=== PATIENT | male | born 1990 | race African-American/Black ===

== ENCOUNTER 2017-01-18 11:48 | Emergency (ER) | payer SELFPAY ==
[2017-01-18] MEDS ORDERED: OXYCODONE-ACETAMINOPHEN 5-325 MG TABLET PO ONE (12:24)
--- NOTE | 2017-01-18 13:11 | ER Document Report ---
HPI - HPI Patient complains to provider of: Abscess Onset: Last week Onset/Duration: Gradual Quality of pain: Achy Pain Level: 3 Context: Patient complains of abscess to left groin. Patient states he has had an abscess in the same location in the past. Patient states that he developed the abscess previously due to shaving. Patient denies any history of MRSA. Patient denies any fever. Associated Symptoms: Other - Abscess to left groin Exacerbated by: Movement Relieved by: Denies Similar symptoms previously: Yes Recently seen / treated by doctor: No - ROS ROS below otherwise negative: Yes Systems Reviewed and Negative: Yes All other systems reviewed and negative - CONSTITUTIONAL Constitutional: DENIES: Fever, Chills - CARDIOVASCULAR Cardiovascular: DENIES: Chest pain - GASTROINTESTINAL Gastrointestinal: DENIES: Nausea, Patient vomiting - MUSCULOSKELETAL Musculoskeletal: REPORTS: Extremity pain - DERM Skin Color: Normal Notes: Abscess Past Medical History - General Information source: Patient - Social History Smoking Status: Current Every Day Smoker Chew tobacco use (# tins/day): No Frequency of alcohol use: Occasional Drug Abuse: None Occupation: Car detailing Lives with: Spouse/Significant other Family History: Reviewed & Not Pertinent - Medical History Medical History: Negative Renal/ Medical History: Denies: Hx Peritoneal Dialysis Surgical Hx: Negative - Immunizations Hx Diphtheria, Pertussis, Tetanus Vaccination: Yes Vertical Provider Document - CONSTITUTIONAL Agree With Documented VS: Yes Exam Limitations: No Limitations General Appearance: WD/WN, No Apparent Distress - INFECTION CONTROL TRAVEL OUTSIDE OF THE [place] IN LAST 30 DAYS: No - HEENT HEENT: Atraumatic, Normocephalic - NECK Neck: Normal Inspection - RESPIRATORY Respiratory: Breath Sounds Normal, No Respiratory Distress O2 Sat by Pulse Oximetry: 96 - CARDIOVASCULAR Cardiovascular: Regular Rate, Regular Rhythm - GI/ABDOMEN Gastrointestinal: Abdomen Soft - REPRODUCTIVE Male Genitalia: Normal Inspection - MUSCULOSKELETAL/EXTREMETIES Musculoskeletal/Extremeties: MAEW - NEURO Level of Consciousness: Awake, Alert, Appropriate Motor/Sensory: No Motor Deficit - DERM Integumentary: Warm, Dry, Abscess - Abscess to left groin area 1 cm area of fluctuance with 2 cm area of induration, no erythema Course - Vital Signs Vital signs: Temp Pulse Resp BP Pulse Ox 98.4 F 73 18 118/63 96 01/18/17 11:54 01/18/17 11:54 01/18/17 11:54 01/18/17 11:54 01/18/17 11:54 Procedures - Incision and Drainage Left Groin Type: Simple Anesthetic type: 1% Lidocaine Blade size: 11 I&D procedure: Betadine prep applied Incision Method: Incision made by scalpel Amount/type of drainage: small amount purulent drainage Discharge - Discharge Clinical Impression: Abscess, Encounter for incision and drainage procedure Condition: Stable Disposition: HOME, SELF-CARE Instructions: Abscess ([facility]), Oral Narcotic Medication ([facility]), Post Incision and Drainage, Trimethoprim-Sulfa ([facility]) Additional Instructions: Return immediately for any new or worsening symptoms Followup with your primary care provider, call tomorrow to make a followup appointment Prescriptions: Oxycodone HCl/Acetaminophen [Percocet 5-325 mg Tablet] 1 tab PO ASDIR PRN #12 tablet PRN Reason: Sulfamethoxazole/Trimethoprim [Bactrim Ds Tablet] 1 each PO BID #20 tablet Forms: Return to Work Referrals: [facility] [Provider Group] - Follow up as needed
[2017-01-18 13:35] VITALS: BP 122/63
== END 2017-01-18 13:35 | disposition home or self-care (01) ==
LOC: ER 11:48
PROC: 0H9JXZZ Drainage of Left Upper Leg Skin, External Approach (ICD-10-PCS; principal; 2017-01-18)
DX: L02.214 Cutaneous abscess of groin (principal); F17.200 Nicotine dependence, unspecified, uncomplicated
CPT/HCPCS: 87070; 87075; 87077; 87205; 99283

== ENCOUNTER 2018-04-26 08:34 | Emergency (ER) | payer SELFPAY ==
--- NOTE | 2018-04-26 09:51 | ER Document Report ---
ED Skin Rash/Insect Bite/Abscs - General Chief Complaint: Abscess Stated Complaint: ABSCESS Time Seen by Provider: 04/26/18 08:54 Mode of Arrival: Ambulatory Information source: Patient Notes: Patient is a 27-year-old male who presents with chief complaint of possible abscess to his groin. Patient reports he has had this multiple times in the past. Patient denies any history of MRSA. Patient reports this time his abscess been has been present for approximately 3 days. He denies any drainage from the area, he further denies any fevers. TRAVEL OUTSIDE OF THE [place] IN LAST 30 DAYS: No - Related Data Allergies/Adverse Reactions: No Known Allergies Allergy (Verified 04/26/18 08:35) Past Medical History - General Information source: Patient - Social History Smoking Status: Current Every Day Smoker Chew tobacco use (# tins/day): No Frequency of alcohol use: None Drug Abuse: None Family History: Reviewed & Not Pertinent Patient has suicidal ideation: No Patient has homicidal ideation: No - Medical History Medical History: Negative Renal/ Medical History: Denies: Hx Peritoneal Dialysis Surgical Hx: Negative - Immunizations Hx Diphtheria, Pertussis, Tetanus Vaccination: Yes Review of Systems - Review of Systems Constitutional: denies: Chills, Fever Cardiovascular: denies: Chest pain, Palpitations Respiratory: denies: Cough Gastrointestinal: denies: Abdominal pain Genitourinary: denies: Dysuria Skin: See HPI Physical Exam - Vital signs Vitals: Temp Pulse Resp BP Pulse Ox 97.3 F 78 16 129/73 H 98 04/26/18 08:45 04/26/18 08:45 04/26/18 08:45 04/26/18 08:45 04/26/18 08:45 - Notes Notes: PHYSICAL EXAMINATION: GENERAL: Well-appearing, well-nourished and in no acute distress. HEAD: Atraumatic, normocephalic. EYES: Pupils equal round extraocular movements intact, conjunctiva are normal. ENT: Nares patent NECK: Normal range of motion LUNGS: No respiratory distress Musculoskeletal: Normal range of motion NEUROLOGICAL: Normal speech, normal gait. PSYCH: Normal mood, normal affect. SKIN: Warm, Dry, normal turgor, no rashes or lesions noted. Tender area of induration with small amount of fluctuance noted to patient's right groin. Course - Re-evaluation Re-evalutation: 04/26/18 10:14 Abscess was incised and drained, see procedure note. Patient tolerated well. Patient will be placed on p.o. antibiotics and discharged home in stable condition. - Vital Signs Vital signs: Temp Pulse Resp BP Pulse Ox 97.3 F 78 16 129/73 H 98 04/26/18 08:45 04/26/18 08:45 04/26/18 08:45 04/26/18 08:45 04/26/18 08:45 Procedures - Incision and Drainage Right groin Type: Simple Anesthetic type: 1% Lidocaine Blade size: 11 I&D procedure: Betadine prep applied Incision Method: Incision made by scalpel Discharge - Discharge Clinical Impression: Abscess Condition: Stable Disposition: HOME, SELF-CARE Additional Instructions: ABSCESS: You have an abscess (boil). This a pus-forming infection, usually due to staph. Some boils may be left to drain on their own, but most require lancing. From the time the tender lump first appears, it may be three or four days before the abscess is ready to sachin. Local heat and rest help at this stage of treatment. An antibiotic may prevent spread of the infection. Once the abscess is opened, packing may be placed into it. This is done so pus is not sealed inside by premature closure of the cavity. The packing will be removed at your follow-up visit or you may be advised to remove it yourself at home. Sometimes this packing must be replaced a few times during healing. The wound will heal with surprisingly little scar. Depending on the size and location of an abscess, healing can take one to four weeks. You may shower and wash the area around the incision site two or three times a day. Antibiotics may be prescribed, but are usually not necessary after an abscess has been drained. If you develop fever, chills, worsening pain, or increasing swelling in the area, call the doctor or return immediately. POST INCISION AND DRAINAGE: You have had an incision made to allow drainage of an abscess. The incision must remain open so that pus and debris can drain from the wound. If the abscess cavity is large, packing is placed. This keeps the tissues from collapsing and trapping pus inside, while the body shrinks the cavity. The packing may need to be replaced every day or two. The physician will instruct you on the packing. Keep a bulky dressing over the area. Replace it if it becomes saturated with blood or pus. Do not disturb the packing (if present). You may shower and cleanse the area with gentle soap and warm water two or three times a day. Local warmth may be soothing, and may promote faster healing. Return if you develop high fever or chills, or if you note spreading redness, increasing swelling, or increasing tenderness. CEPHALEXIN: The antibiotic you've been prescribed is a member of the cephalosporin class. This type of antibiotic covers a wide variety of infections, including those of the skin, lungs, and urinary tract. It's useful for staph infections. This antibiotic is slightly similar to the penicillin family. In rare cases, a person who is allergic to penicillin will also be allergic to this medication. If you have had a severe allergic reaction to penicillin, and have not taken this antibiotic since that time, notify your doctor. Antibiotics which cover many germs ("broad spectrum" antibiotics) are more likely to cause diarrhea or "yeast" infections. Women prone to vaginal yeast problems may suffer an attack after taking this antibiotic. In infants, oral thrush (white spots "stuck" on the cheek) or yeast diaper rash may result. See your doctor if these problems occur. Call at once if you develop itching, hives, shortness of breath, or lightheadedness. TRIMETHOPRIM-SULFA: You have been given a prescription for trimethoprim-sulfa (TMS, Septra, Bactrim). This is a combination antibiotic of the sulfa class, often used for urinary tract infections, middle ear infections, bronchitis, shigella intestinal infection, and Pneumocystis pneumonia. TMS is usually well-tolerated. Occasional side effects include nausea and decreased appetite. Septra is not recommended for infants less than two months of age. Do not take this medication if you have experienced severe side effects or allergy to sulfa medicine. You should stop this medicine at once and contact your physician if you develop any rash, joint pain, shortness of breath, bruising, or jaundice (yellow color in the skin), or if you develop any other new or unusual symptoms. FOLLOW-UP CARE: Most simple abscesses will not require a follow up visit. If you had packing placed in the abscess, remove it as instructed by the physician. If you have been referred to a physician for follow-up care, call the physicians office for an appointment as you were instructed or within the next two days. If you experience worsening or a significant change in your symptoms, return to the Emergency Department at any time for re-evaluation. Please take antibiotics as prescribed, finish finish the entire course even if you are feeling better. Please apply warm compresses to the area at least 3- 4 times a day. Return to the emergency department if you develop a fever or worsening in anyway. Prescriptions: Cephalexin [Cephalexin 500 MG Tablet] 1 tab PO QID #28 tablet Sulfamethoxazole/Trimethoprim [Bactrim Ds Tablet] 1 tab PO BID #20 tablet
[2018-04-26 10:35] VITALS: BP 120/82
== END 2018-04-26 10:33 | disposition home or self-care (01) ==
LOC: ER 08:34
DX: L02.214 Cutaneous abscess of groin (principal); F17.200 Nicotine dependence, unspecified, uncomplicated
CPT/HCPCS: 99283

== ENCOUNTER 2019-01-30 09:31 | Emergency (ER) | payer SELFPAY ==
--- NOTE | 2019-01-30 09:40 | ER Document Report ---
ED Medical Screen (RME) - General Stated Complaint: ABSCESS/GROIN AREA Time Seen by Provider: 01/30/19 09:36 Mode of Arrival: Ambulatory Information source: Patient Notes: Patient is an otherwise healthy 20-year-old male presenting to the emergency department with concern for abscess to his groin. Patient reports multiple abscesses in the past, states he has had to have this drained in the past. He states he has been on antibiotics multiple times but the abscess persists. Exam: Area of induration with slight fluctuance noted to right side of groin, nontender on palpation. I have greeted and performed a rapid initial assessment of this patient. A comprehensive ED assessment and evaluation of the patient, analysis of test results and completion of the medical decision making process will be conducted by additional ED providers. I have specifically instructed the patient or family members with the patient to immediately return to any nursing staff should anything change in the patient's condition or with their chief complaint. This medical record was dictated with voice recognizing software. There may be grammatical, syntax errors that are unintended. TRAVEL OUTSIDE OF THE [place] IN LAST 30 DAYS: No - Related Data Allergies/Adverse Reactions: No Known Allergies Allergy (Verified 04/26/18 08:35) Past Medical History Renal/ Medical History: Denies: Hx Peritoneal Dialysis - Immunizations Hx Diphtheria, Pertussis, Tetanus Vaccination: Yes
[2019-01-30] MEDS ORDERED: LIDOCAINE 1% INJ-PF (10 MG/ML) 30 ML SDV INJ ONE (11:32)
[2019-01-30] MEDS ORDERED: OXYCODONE-ACETAMINOPHEN 5-325 MG TABLET PO ONE (11:33)
[2019-01-30] MEDS ORDERED: SULFAMETHOXAZOLE/TRIMETHOPRIM 800-160 MG TABLET PO ONE (11:33)
--- NOTE | 2019-01-30 12:36 | ER Document Report ---
Entered by JNOEL QUEEN SCRIBE 01/30/19 1132 Acting as scribe for:MAGGY MAI MD ED Skin Rash/Insect Bite/Abscs - General Chief Complaint: Abscess Stated Complaint: ABSCESS/GROIN AREA Time Seen by Provider: 01/30/19 09:36 Mode of Arrival: Ambulatory Information source: Patient Notes: Patient is a 28-year-old male who presents to the emergency department today with complaints of an abscess to his right groin. Patient has had multiple abscesses in the past, with some being in the same general area. Patient states his last abscess was earlier this year. TRAVEL OUTSIDE OF THE [place] IN LAST 30 DAYS: No - Related Data Allergies/Adverse Reactions: No Known Allergies Allergy (Verified 04/26/18 08:35) Past Medical History - General Information source: Patient - Social History Smoking Status: Current Every Day Smoker Cigarette use (# per day): Yes Frequency of alcohol use: Occasional Drug Abuse: None Lives with: Family Family History: Reviewed & Not Pertinent Patient has suicidal ideation: No Patient has homicidal ideation: No - Immunizations Hx Diphtheria, Pertussis, Tetanus Vaccination: Yes Review of Systems - Review of Systems Constitutional: No symptoms reported EENT: No symptoms reported Cardiovascular: No symptoms reported Respiratory: No symptoms reported Gastrointestinal: No symptoms reported Genitourinary: No symptoms reported Male Genitourinary: No symptoms reported Musculoskeletal: No symptoms reported Skin: See HPI, Other - abscess right groin Hematologic/Lymphatic: No symptoms reported Neurological/Psychological: No symptoms reported -: Yes All other systems reviewed and negative Physical Exam - Vital signs Vitals: Temp Pulse Resp BP Pulse Ox 99.4 F 97 18 141/66 H 97 01/30/19 09:38 01/30/19 09:38 01/30/19 09:38 01/30/19 09:38 01/30/19 09:38 - Notes Notes: Physical Exam: General: Alert, appears well. HEENT: Normocephalic. Atraumatic. PERRLA. Extraocular movements intact. Oropharynx clear. Neck: Supple. Respiratory: No respiratory distress. Abdominal: Normal Inspection. No distension. Extremities: Moves all four extremities. Neurological: Normal cognition. AAOx4. Normal speech. Psychological: Normal affect. Normal Mood. Skin: Over the right groin there is an area that is indurated and tender with palpation. This area is swollen with thickened hyper keratotic skin over this same area. Course - Vital Signs Vital signs: Temp Pulse Resp BP Pulse Ox 97.2 F 71 19 115/64 97 01/30/19 12:49 01/30/19 12:49 01/30/19 12:49 01/30/19 12:49 01/30/19 12:49 Procedures - Incision and Drainage Right Groin Time completed: 12:30 Type: Simple Anesthetic type: 1% Lidocaine mL's of anesthetic: 5 Blade size: 11 I&D procedure: Shurclens applied Incision Method: Incision made by scalpel Amount/type of drainage: none Notes: 01/30/19 12:40 Patient had squeezed pus out of the abscess area several times in the past. The potential space was opened up with a #11 scalpel, the thinned skin above it was trimmed on either side of the incision to allow an open wound that could granulate and fill in from the inside out. Discharge - Discharge Clinical Impression: Abscess of groin, right Condition: Stable Disposition: HOME, SELF-CARE Additional Instructions: Abscess You have an abscess (boil). This a pus-forming infection, usually due to staph. Some boils may be left to drain on their own, but most require lancing. From the time the tender lump first appears, it may be three or four days before the abscess is ready to sachin. Local heat and rest help at this stage of treatment. An antibiotic may prevent spread of the infection. Once the abscess is opened, packing may be placed into it. This is done so pus is not sealed inside by premature closure of the cavity. The packing will be removed at your follow-up visit or you may be advised to remove it yourself at home. Sometimes this packing must be replaced a few times during healing. The wound will heal with surprisingly little scar. Depending on the size and location of an abscess, healing can take one to four weeks. You may shower and wash the area around the incision site two or three times a day. Antibiotics may be prescribed, but are usually not necessary after an abscess has been drained. If you develop fever, chilling, worsening pain, or increasing swelling in the area, call the doctor or return immediately. Take medication as prescribed. Take ibuprofen 800 mg every 8 hours or Aleve 2 tablets every 12 hours for pain. Limit walking and other activities for the next few days. Keep a small gauze dressing on the wound for the next 2 to 3 days. RETURN TO THE EMERGENCY ROOM IF ANY NEW OR WORSENING SYMPTOMS. Prescriptions: Sulfamethoxazole/Trimethoprim [Bactrim Ds Tablet] 2 tab PO BID #28 tablet Scribe Attestation: 01/30/19 11:59 I personally performed the services described in the documentation, reviewed and edited the documentation which was dictated to the scribe in my presence, and it accurately records my words and actions. I personally performed the services described in the documentation, reviewed and edited the documentation which was dictated to the scribe in my presence, and it accurately records my words and actions.
[2019-01-30 12:50] VITALS: BP 115/64
== END 2019-01-30 12:49 | disposition home or self-care (01) ==
LOC: ER 09:31
DX: L02.214 Cutaneous abscess of groin (principal); L85.9 Epidermal thickening, unspecified; F17.210 Nicotine dependence, cigarettes, uncomplicated
CPT/HCPCS: 99282

== ENCOUNTER 2019-10-04 09:47 | Emergency (ER) | payer SELFPAY ==
--- NOTE | 2019-10-04 10:14 | ER Document Report ---
ED Medical Screen (RME) - General Chief Complaint: Abscess Stated Complaint: ABSCESS/GROIN Time Seen by Provider: 10/04/19 10:09 Mode of Arrival: Ambulatory Information source: Patient Notes: 29-year-old male presented to ED for complaint of abscess to his right groin. He states he has been seen for this multiple times the last time he was seen was about a year ago. He states he continues to have the abscesses and pops them at home but sometimes the pain gets bad and he has to come into the emergency room. He states his pain at this time is a 1 out of 5. He states that when he gets r eal big gets a whole out more. He does smoke 3 cigarettes a day and drinks weekly. He is alert oriented respirations regular and unlabored speaking in full sentences. States he has never been told he had hidradenitis. States he is never been told to follow-up with a surgeon. I have greeted and performed a rapid initial assessment of this patient. A comprehensive ED assessment and evaluation of the patient, analysis of test results and completion of medical decision making process will be conducted by an additional ED providers. TRAVEL OUTSIDE OF THE [place] IN LAST 30 DAYS: No - Related Data Allergies/Adverse Reactions: No Known Allergies Allergy (Verified 04/26/18 08:35) Past Medical History Renal/ Medical History: Denies: Hx Peritoneal Dialysis - Immunizations Hx Diphtheria, Pertussis, Tetanus Vaccination: Yes
--- NOTE | 2019-10-04 12:56 | ER Document Report ---
ED Skin Rash/Insect Bite/Abscs - General Chief Complaint: Abscess Stated Complaint: ABSCESS/GROIN Time Seen by Provider: 10/04/19 10:09 Primary Care Provider: LILI VORA MD [ACTIVE STAFF] - Follow up in 3-5 days (Call for an outpatient follow-up appointment.) Mode of Arrival: Ambulatory Information source: Patient Notes: 29-year-old male with no previous medical problems presents to the emergency room complaining of an abscess to his right groin that he has had intermittently for the past 8 months. States he gets these abscesses frequently. Has been seen in the emergency room and have them lanced. Has never had to have surgical intervention. States he used to shave which contributed to his symptoms he states he no longer shaves that area. He states he tries to pop them on his own and that he did get a moderate amount of drainage from it yesterday. He denies any fevers. No penile discharge no penile pain. No testicular pain. Also was complaining of pain to his right upper posterior tooth. States has seen a dentist in the past was put on antibiotics is concerned that he could be developing another abscess. Eating and drinking normally. TRAVEL OUTSIDE OF THE [place] IN LAST 30 DAYS: No - Related Data Allergies/Adverse Reactions: No Known Allergies Allergy (Verified 10/04/19 10:14) Past Medical History - General Information source: Patient - Social History Smoking Status: Current Every Day Smoker Chew tobacco use (# tins/day): No Frequency of alcohol use: Occasional Drug Abuse: None Family History: Reviewed & Not Pertinent Patient has homicidal ideation: No Renal/ Medical History: Denies: Hx Peritoneal Dialysis - Immunizations Hx Diphtheria, Pertussis, Tetanus Vaccination: Yes Review of Systems - Review of Systems Constitutional: No symptoms reported EENT: Dental problem Cardiovascular: No symptoms reported Respiratory: No symptoms reported Gastrointestinal: No symptoms reported Genitourinary: No symptoms reported Skin: Lesions Neurological/Psychological: No symptoms reported -: Yes All other systems reviewed and negative Physical Exam - Vital signs Vitals: Temp Pulse BP Pulse Ox 97.2 F 79 130/75 H 96 10/04/19 09:51 10/04/19 09:51 10/04/19 09:51 10/04/19 09:51 - General General appearance: Appears well, Alert In distress: Mild - HEENT Head: Normocephalic, Atraumatic Eyes: Normal Extraocular movements intact: Yes Ears: Normal External canal: Normal Tympanic membrane: Normal Sinus: Normal Nasal: Normal Mouth/Lips: Other - Right upper posterior molar tender to palpation. There is erythema and swelling noted to the gum surrounding the tooth. There is no palpable abscess noted. Teeth diagram: 1 - Erythema and swelling non-fluctuant abscess palpated Pharynx: Normal Neck: Normal - Respiratory Respiratory status: No respiratory distress Chest status: Nontender Breath sounds: Normal Chest palpation: Normal - Cardiovascular Rhythm: Regular Heart sounds: Normal auscultation Murmur: No - Extremities General upper extremity: Normal inspection, Nontender, Normal color, Normal ROM, Normal temperature General lower extremity: Normal inspection, Nontender, Normal color, Normal ROM, Normal temperature, Normal weight bearing. No: Kierra's sign - Skin Skin Temperature: Warm Skin Moisture: Dry Skin Color: Normal Skin irregularity: Abscess Location of irregularity: Other - Right groin Character of irregularity: Symmetric Irregularity with: Swelling, Tenderness. negative: Warmth, Lymphangitis Notes: There is a 1/4 cm nonfluctuant abscess that is palpated to the right groin area. There is no lymphadenopathy noted. It is not warm but is tender to palpation.. There is no active discharge or draining noted. Course - Re-evaluation Re-evalutation: 10/04/19 12:53 Patient with a non-fluctuant abscess to the right groin. Counseled on warm compresses 20 minutes 3 times a day antibiotics as prescribed. Outpatient follow-up with general surgeon as discussed. On-call physician was provided. Patient with an abscess that is noted to the right upper posterior tooth. He was counseled to take his antibiotics as prescribed. Soft diet. Outpatient follow-up with his dentist as discussed. Patient was given strict return to the emergency room guidelines. Return for any new or worsening symptoms. All questions were answered. Patient verbalized understanding and agrees with plan of care. 10/04/19 15:49 - Vital Signs Vital signs: Temp Pulse Resp BP Pulse Ox 98.5 F 69 14 135/75 H 97 10/04/19 13:14 10/04/19 13:14 10/04/19 13:14 10/04/19 13:14 10/04/19 13:14 Discharge - Discharge Clinical Impression: Abscess of right groin Condition: Stable Disposition: HOME, SELF-CARE Instructions: Abscess ([facility]), Dental Infection or Abscess ([facility]) Additional Instructions: You were seen for an abscess that did not require drainage. Apply warm compresses 20 minutes 3 times a day. Take antibiotics as prescribed. Call the surgeon for an outpatient follow-up appointment. Antibiotics will cover both the dental infection as well as the abscess. You need to follow-up with your dentist as discussed. Please return if you develop fever, vomiting, the pain at the site worsens, you notice spreading redness from the area, or you have any ot her symptoms that are concerning to you. Prescriptions: Clindamycin HCl 300 mg PO QID #40 capsule Referrals: LILI VORA MD [ACTIVE STAFF] - Follow up in 3-5 days (Call for an outpatient follow-up appointment.)
[2019-10-04 13:16] VITALS: BP 135/75
== END 2019-10-04 13:14 | disposition home or self-care (01) ==
LOC: ER 09:47
DX: L02.214 Cutaneous abscess of groin (principal); F17.200 Nicotine dependence, unspecified, uncomplicated
CPT/HCPCS: 99282